=== PATIENT | male | born 1965 | race Caucasian/White ===

== ENCOUNTER 2017-01-20 21:07 | Emergency (ER) | payer OTHER ==
--- NOTE | 2017-01-20 21:24 | EDPHY ---
H & P Stated Complaint: Left Flank Pain - Personal History Current Tetanus/Diphtheria Vaccine: Yes Current Tetanus Diphtheria and Acellular Pertussis (TDAP): Yes - Medical/Surgical History Hx Asthma: No Hx Chronic Respiratory Disease: No Hx Diabetes: No Hx Renal Disease: No Hx Cirrhosis: No Hx Alcoholism: No Hx HIV/AIDS: No Hx Splenectomy or Spleen Trauma: No Other PMH: heart murmur - Social History Smoking Status: Never smoked Constitutional: Initial Vital Signs Temperature (C) 36.9 C 01/20/17 21:15 Heart Rate 92 01/20/17 21:15 Respiratory Rate 14 01/20/17 21:15 Blood Pressure 156/99 H 01/20/17 21:15 O2 Sat (%) 96 01/20/17 21:15 O2 Delivery Mode Room Air Allergies/Adverse Reactions: No Known Allergies Allergy (Unverified 01/20/17 21:15) Home Medications: Medication Instructions Recorded Hydrocodone/APAP 5/325 [Mallory 1 - 2 each PO Q4-6PRN PRN #20 tab 01/20/17 5/325] Medical Decision Making - Diagnostics Imaging Results: Imaging Impressions Abdomen/Pelvis CT 01/20/17 21:21 Impression: 1. No nephrolithiasis or hydronephrosis. 2. Mild constipation. 3. L4-L5 moderate central canal stenosis secondary to degenerative disk disease , facet arthropathy, and disk/osteophyte complex, asymmetrically more prominent towards the right. Attention: This CT examination is specifically designed to evaluate patients who are clinically suspected of having acute obstructive uropathy. This examination does not use radiographic contrast, and as such, provides only a limited evaluation of the abdomen, pelvis, and retroperitoneum. If there is further clinical suspicion for pathological conditions other than obstructive uropathy, a complete CT evaluation of the abdomen and pelvis utilizing intravenous, oral, and rectal contrast should be considered. Findings and recommendations discussed with emergency department physician, Andrei Means MD at 2149 hours on January 20, 2017. Final report concurs with initial preliminary interpretation. ED Course/Re-evaluation: CHIEF COMPLAINT: Left flank pain. HISTORY OF PRESENT ILLNESS: The patient is a 51-year-old male who presents via EMS for left flank pain that began four hours ago. The pain is intermittent and intermittently radiates to his left groin. He denies recent back traumas or injury. He denies fever, vomiting, diarrhea, or other complaints. He has no prior history of kidney stones but he does have a history of similar symptoms 3 years ago that was negative after ultrasound imaging. REVIEW OF SYSTEMS: A 10 point review of systems was performed and is negative with the exception of the elements mentioned in the history of present illness. PHYSICAL EXAM: HR, BP, O2 Sat, RR. Temp noted General Appearance: Alert, well hydrated, appropriate, and non-toxic appearing. Head: Atraumatic without scalp tenderness or obvious injury Eyes: Pupils equal, round, reactive to light and accommodation, EOMI, no trauma , no injection. Ears: Clear bilaterally, no perforation, normal landmarks Nose: Atraumatic, no rhinorrhea, clear. Throat: There is no erythema or exudates, no lesions, normal tonsils, mucus membranes moist. Neck: Supple, 2+ carotid upstroke, nontender, no lymphadenopathy. Respiratory: No retractions, no distress, no wheezes, and no accessory muscle use. Lungs are clear to auscultation bilaterally. Cardiovascular: Regular rate and rhythm, no murmurs, rubs, or gallops. Bilateral carotid, radial, dorsalis pedis, and posterior tibial pulses intact. Good capillary refill all extremities. Gastrointestinal: Abdomen is soft, nontender, non-distended, no masses, no rebound, no guarding, no peritoneal signs. Musculoskeletal: Normal active ROM of all extremities, atraumatic. Neurological: Alert, appropriate, and interactive. The patient has normal DTRs and non-focal cranial nerves, motor, sensory, and cerebellar exam. Skin: No rashes, good turgor, no nodules on palpation. Past medical history: Heart murmur. Past surgical history: Denies. Family history: N/A. Social history: . DIAGNOSTICS/PROCEDURES/CRITICAL CARE TIME: Study: CT of the abdomen/pelvis without contrast. Results: See Imaging Results section for official report. The study was read by the radiologist. I viewed the images myself on the PACS system. DIFFERENTIAL DIAGNOSIS: The differential diagnosis for the patient's flank pain included but was not limited to musculoskeletal causes, kidney stone, pyelonephritis, shingles, diverticulitis, appendicitis, and aortic aneurysm. MEDICAL DECISION MAKIN-year-old male presents via EMS for left flank pain that intermittently radiates to his groin. He is afebrile and denies urinary symptoms. I am suspicious for kidney stone in this patient. An IV was established and labs ordered including CBC and chemistry. Non-contrast CT scan ordered. 30mg IV Toradol and 1mg IV Dilaudid administered for pain. 2137: CT results conveyed to me negative by Dr. Prakash, radiology. Awaiting results of urinalysis. Urinalysis is negative for infection. It is possible that he did have a kidney stone but was able to pass it. I think these symptoms are likely musculoskeletal pain and there are no signs of other acute process at this time. 2208: Reassessed patient. Discussed results of CT scan and lab work. He is feeling better and is ready to go home. He understands to follow up with his primary care provider for ongoing symptoms. He is comfortable with this plan. I have written him a prescription for Mallory. - Data Points Laboratory Results: Laboratory Results 01/20/17 21:00 01/20/17 21:00 01/20/17 01/20/17 01/20/17 21:40 21:00 21:00 WBC 10.87 10^3/uL H 10^3/uL (3.80-9.50) RBC 5.42 10^6/uL 10^6/uL (4.40-6.38) Hgb 16.8 g/dL g/dL (13.7-17.5) Hct 46.9 % % (40.0-51.0) MCV 86.5 fL fL (81.5-99.8) MCH 31.0 pg pg (27.9-34.1) MCHC 35.8 g/dL g/dL (32.4-36.7) RDW 12.8 % % (11.5-15.2) Plt Count 272 10^3/uL 10^3/uL (150-400) MPV 10.6 fL fL (8.7-11.7) Neut % (Auto) 58.7 % % (39.3-74.2) Lymph % (Auto) 32.0 % % (15.0-45.0) Bennett % (Auto) 5.8 % % (4.5-13.0) Eos % (Auto) 2.3 % % (0.6-7.6) Baso % (Auto) 0.7 % % (0.3-1.7) Nucleat RBC Rel Count 0.0 % % (0.0-0.2) Absolute Neuts (auto) 6.38 10^3/uL 10^3/uL (1.70-6.50) Absolute Lymphs (auto) 3.48 10^3/uL H 10^3/uL (1.00-3.00) Absolute Monos (auto) 0.63 10^3/uL 10^3/uL (0.30-0.80) Absolute Eos (auto) 0.25 10^3/uL 10^3/uL (0.03-0.40) Absolute Basos (auto) 0.08 10^3/uL 10^3/uL (0.02-0.10) Absolute Nucleated RBC 0.00 10^3/uL 10^3/uL (0-0.01) Immature Gran % 0.5 % % (0.0-1.1) Immature Gran # 0.05 10^3/uL 10^3/uL (0.00-0.10) Sodium 140 mEq/L mEq/L (134-144) Potassium 4.0 mEq/L mEq/L (3.5-5.2) Chloride 104 mEq/L mEq/L (97-110) Carbon Dioxide 23 mEq/l mEq/l (22-31) Anion Gap 13 mEq/L mEq/L (8-16) BUN 14 mg/dL mg/dL (7-23) Creatinine 0.9 mg/dL mg/dL (0.7-1.3) Estimated GFR > 60 Glucose 75 mg/dL mg/dL (70-100) Calcium 10.2 mg/dL mg/dL (8.5-10.4) Urine Color YELLOW Urine Appearance HAZY Urine pH 6.0 (5.0-7.5) Ur Specific [place] 1.030 (1.002-1.030) Urine Protein 1+ H (NEGATIVE) Urine Ketones TRACE H (NEGATIVE) Urine Blood NEGATIVE (NEGATIVE) Urine Nitrate NEGATIVE (NEGATIVE) Urine Bilirubin NEGATIVE (NEGATIVE) Urine Urobilinogen NEGATIVE EU EU (0.2-1.0) Ur Leukocyte Esterase NEGATIVE (NEGATIVE) Urine RBC 1-3 /hpf /hpf (0-3) Urine WBC 1-3 /hpf /hpf (0-3) Ur Epithelial Cells TRACE /lpf /lpf (NONE-1+) Amorphous Sediment PRESENT /hpf /hpf (NONE-1+) Urine Mucus 2+ /lpf H /lpf (NONE-1+) Urine Glucose NEGATIVE (NEGATIVE) Medications Given: Discontinued Medications Hydromorphone HCl (Dilaudid) 1 mg IVP EDNOW ONE Stop: 01/20/17 21:35 Last Admin: 01/20/17 21:40 Dose: 1 mg Ketorolac Tromethamine (Toradol) 30 mg IVP EDNOW ONE Stop: 01/20/17 21:35 Last Admin: 01/20/17 21:42 Dose: 30 mg Departure - Departure Disposition: Home, Routine, Self-Care Clinical Impression: Flank pain, Musculoskeletal pain Condition: Good Instructions: Musculoskeletal Pain (ED), Flank Pain (ED) Additional Instructions: Follow up with your primary care provider for reevaluation if pain persists. If you need a primary care provider you have been given the telephone number of Dr. Simms, outpatient medicine. Take Mallory as prescribed when needed for pain. Return for any serious worsening of condition. Referrals: Sabra Simms MD [Medical Doctor] - As per Instructions Prescriptions: Hydrocodone/APAP 5/325 [Mallory 5/325] 1 - 2 each PO Q4-6PRN PRN #20 tab PRN Reason: Pain, Moderate Report Scribed for: Andrei Means Report Scribed by: Angel Alonzo Date of Report: 01/20/17 Time of Report: 21:19
[2017-01-20 21:29] LABS: % IMMATURE GRANULYOCYTES 0.5 % (0.0-1.1); ABSOLUTE IMMATURE GRANULOCYTES 0.05 10^3/uL (0.00-0.10); ADD DIFF? NO; ADD MORPH? NO; ADD SCAN? NO; ATYPICAL LYMPHOCYTE FLAG 0 (0-99); FRAGMENT RBC FLAG 0 (0-99); HEMATOCRIT 46.9 % (40.0-51.0); HEMOGLOBIN 16.8 g/dL (13.7-17.5); LEFT SHIFT FLG 0 (0-99); LIPEMIA HEMOLYSIS FLAG 90 (0-99); MEAN CELL HEMOGLOBIN CONCENTR. 35.8 g/dL (32.4-36.7); MEAN CELL VOLUME 86.5 fL (81.5-99.8); MEAN PLATELET VOLUME 10.6 fL (8.7-11.7); PLATELET CLUMPS FLAG 10 (0-99); PLATELET COUNT 272 10^3/uL (150-400); RED BLOOD CELL COUNT 5.42 10^6/uL (4.40-6.38); RED CELL DISTRIBUTION WIDTH 12.8 % (11.5-15.2)
[2017-01-20] MEDS ORDERED: KETOROLAC 30 MG/1 ML SDV IVP ONE (21:34)
[2017-01-20] MEDS ORDERED: HYDROmorphONE/DILAUDID 1 MG/ML SYR IVP ONE (21:34)
[2017-01-20] MEDS ORDERED: KETOROLAC 30 MG/1 ML SDV ONE (21:35)
[2017-01-20 21:40] LABS: ANION GAP 13 mEq/L (8-16); CALCIUM 10.2 mg/dL (8.5-10.4); CARBON DIOXIDE 23 mEq/l (22-31); CHLORIDE 104 mEq/L (97-110); CREATININE 0.9 mg/dL (0.7-1.3); GLOMERULAR FILTRATION RATE > 60; GLUCOSE 75 mg/dL (70-100); SODIUM 140 mEq/L (134-144)
[2017-01-20 21:52] LABS: COLOR YELLOW; LEUKOCYTE ESTERASE,URINE NEGATIVE (NEGATIVE); NITRITE,URINE NEGATIVE (NEGATIVE)
[2017-01-20 22:00] LABS: AMORPHOUS PRESENT /hpf (NONE-1+); MUCUS 2+ /lpf (NONE-1+)
[2017-01-20 22:20] VITALS: BP 148/76; PULSE 76; RESP 20; TEMP 98.2; O2SAT 97
== END 2017-01-20 22:32 | disposition home or self-care (01) ==
LOC: EDUNIT#
DX: R10.9 Unspecified abdominal pain (principal); M79.1 Myalgia
CPT/HCPCS: 96374; J1170; J1885